=== PATIENT | female | born 1950 | race Caucasian/White ===

== ENCOUNTER → 2025-09-12 | Outpatient (CLI) | payer MEDICARE, OTHER, SELFPAY ==
[2025-09-12 11:31] LABS: Hematocrit 47.2 % (37-47); Hemoglobin 15.1 g/dL (12.0-15.0); Immature Granulocytes Count 0.070 X10^3/uL (0.0-0.0); Mean Corp Hgb Conc 32.0 g/dL (32-36); Mean Corpuscular Volume 95.5 fL (81-99); Mean Platelet Vol. 10.0 fl (6.2-12.0); NRBC Flagged by Analyzer 0 % (0-5); Platelet Count 232 K/mm3 (150-450); RBC Distribution Width CV 12.9 % (11.6-14.6); RBC Distribution Width SD 45.5 fl (35.1-43.9); Red Blood Count 4.94 M/mm3 (4.2-5.4); White Blood Count 11.5 K/mm3 (4.4-11.0)
[2025-09-12 11:34] LABS: Color, Urine Yellow (Yellow); Glucose, Dipstick Normal (Normal); Ketone-Dipstick Negative (Negative); Leukocyte Esterase-Dipstick 25 /ul (Negative); Nitrite-Dipstick Negative (Negative); Occult Blood-Urine 50 /ul (Negative); Protein-Dipstick 30 mg/dl (Negative); Specific Gravity, Urine 1.025 (1.002-1.030); Urine Bilirubin Dipstick Negative (Negative)
[2025-09-12 11:56] LABS: Creatinine, Urine (random) 155.00 mg/dL (28.00-217.00); Protein, Urine (Random) 28.1 mg/dL (0.0-12.0); Protein:Creat Ratio 181 mg/g CRE (0-200)
[2025-09-12 12:12] LABS: EXAGEN MAILED SPECIMEN
[2025-09-12 12:24] LABS: CRP 35.10 mg/L (0.0-3.0); Hepatitis B Surface Antigen Nonreactive (Nonreactive)
[2025-09-12 12:28] LABS: AST(SGOT) 19 U/L (<=31); Alanine Aminotransfer ALT/SGPT 12 U/L (<=34); Albumin, Serum 4.3 g/dL (3.4-4.8); Alkaline Phosphatase 76 U/L (35-104); Anion Gap 12 (7-18); BUN 20 mg/dL (4-19); BUN/Creat Ratio 25.7 RATIO (10-20); Calcium,Total 9.9 mg/dL (7.6-11.0); Carbon Dioxide 24.1 mmol/L (20.0-29.0); Chloride 105 mmol/L (96-106); Globulin 3.2 g/dL (2.2-4.2); Glucose 87 mg/dL (70-99); Potassium 4.2 mmol/L (3.5-5.1)
[2025-09-14 03:07] LABS: Dilute Russell Viper Venom 41.2 sec (0.0-47.0); Interpretation Comment: (.); PTT-LA 30.4 sec (0.0-43.5)
== END | disposition home or self-care (01) ==
LOC: LAB 10:36
PROVIDERS: Referring Provider Internal Medicine Rheumatology; Visit Provider Internal Medicine Rheumatology
DX: L30.8 Other specified dermatitis (principal); R76.89 Other specified abnormal immunological findings in serum; M17.0 Bilateral primary osteoarthritis of knee; M16.0 Bilateral primary osteoarthritis of hip
CPT/HCPCS: 36415; 80053; 81002; 82570; 84156; 85025; 85652; 86140; 86706; 87340